=== PATIENT | female | born 1990 | race Hispanic/Latino ===

== ENCOUNTER 2020-12-15 00:08 | Emergency (ER) | payer BC ==
[~2020-12-15] VITALS: Ht 154.9 cm; Wt 72.0 kg
[~2020-12-15 00:08] MED LIST: ACYCLOVIR200 MG PO; DARVOCET-N100 MG OR; FIORICET PO; FLAGYL500 MG OR; GIANVI OR; GIANVI PO; NEXIUM20 M1 OR; NO; PRILOSEC20 MG PO; SPRINTEC 2828 DAY PO; VIT B 12 PO
[2020-12-15] MEDS ORDERED: PREDNISONE20 MG PO (01:00)
[2020-12-15 01:09] VITALS: BP 120/79
== END 2020-12-15 01:14 | disposition home or self-care (01) | DRG 607 ==
LOC: ED 00:08
DX: L50.9 Urticaria, unspecified (principal)